=== PATIENT | female | born 1990 | race Caucasian/White ===

== ENCOUNTER 2017-07-30 18:29 | Emergency (ER) | payer OTHER ==
[~2017-07-30] VITALS: Ht 170.2 cm; Wt 63.7 kg
[2017-07-30 18:47] VITALS: Ht 170.2 cm; Wt 63.7 kg
[2017-07-30] MEDS ORDERED: ONDANSETRON 4MG OD TAB PO STA (19:56)
[2017-07-30] MEDS ORDERED: CHOLESTYRAMINE LIGHT 4 GM PKT PO STA (19:56)
--- NOTE | 2017-07-30 20:01 | EMERGENCY ROOM VISIT NOTE ---
History Report prepared by Chiquis: Doyle De Luna Under the Supervision of: Dr. Martín Monique M.D. First contact with patient: 19:48 Chief Complaint: DIARRHEA Stated Complaint: RUNNING NOSE,SORE THROAT,DIARRHEA Nursing Triage Summary: c/o of diarrhea and nasal congestion over the last 5 days. History of Present Illness The patient is a 27 year old female who presents to the Emergency Room with complaints of persistent diarrhea for the past 5 days. The patient states that she recently arrived in the [facility], and she has had diarrhea for the past five days as well as a runny nose, nausea, and sorethroat for the past few days. She denies any vomiting, abdominal pain, hematochezia, and any chance of . She does not take any medications, and she states that her last menstrual period ended two days ago. Source of History: patient Onset: 5 days Position: other (global) Quality: other (diarrhea) Timing: other (persistent) Associated Symptoms: + sorethroat, + nausea, No abdominal pain Note: Associated symptoms: runny nose Review of Systems See HPI for pertinent positives & negatives. A total of 10 systems reviewed and were otherwise negative. Past Medical & Surgical Medical Problems: (1) No chronic problems Family History Patient reports no known family medical history. Social History Smoking Status: Never Smoker Marital Status: single Occupation Status: unemployed Physical Exam Vital Signs Date Time Temp Pulse Resp B/P (MAP) Pulse Ox O2 Delivery O2 Flow Rate FiO2 07/30/17 20:18 37.0 99 20 131/90 100 Room Air 07/30/17 19:46 104 20 145/99 100 Room Air 07/30/17 18:47 37.0 102 18 147/97 96 Room Air Physical Exam GENERAL: Patient is a healthy-appearing well-nourished female HEAD: Normocephalic atraumatic EYES: Ocular movements intact pupils equal and react to light OROPHARYNX mucous membranes are moist no exudates present no erythema or edema present NECK: Supple no nuchal rigidity CHEST: Good equal expansion LUNGS: Clear and equal to auscultation CARDIAC: Normal S1 and S2 ABDOMEN: Soft nontender no guarding BACK: No CVA tenderness EXTREMITIES: No pain upon palpation normal muscle strength in all groups no clubbing cyanosis or edema NEURO: Patient is following commands and answering questions appropriately. Alert and oriented x3 Cranial Nerves 2-12 grossly intact Medical Decision & Procedures Laboratory Results Date/Time Source Procedure Growth Status 07/30/17 20:26 Stool C.difficile Toxin B Gene (PCR) - Final No C. difficile toxin B gene detected Complete Medications Administered Medications (Trade) Dose Ordered Sig/Shane Route Start Time Stop Time Status Last Admin Dose Admin Ondansetron HCl (Zofran Odt) 4 mg ONE STAT PO 07/30/17 19:56 07/30/17 19:57 DC 07/30/17 20:15 4 MG Cholestyramine Resin (Questran Powder Light) 4 gm NOW STAT PO 07/30/17 19:56 07/30/17 19:57 DC 07/30/17 20:15 4 GM ED Course 1947: Past medical records reviewed. The patient was evaluated in room B9. A complete history and physical examination was performed. 1955: Cholestyramine Resin 4gm PO, Zofran Odt 4mg PO 2034: Upon reexamination the patient is doing well. I discussed results and treatment plan with the patient. She verbalizes agreement and understanding. The patient is ready for discharge. Medical Decision Differential diagnosis: Etiologies such as appendicitis, diverticulitis, PUD, biliary pathology, UTI, pancreatitis, obstruction, mesenteric ischemia, aortic pathology, infections, inflammatory bowel disease, renal colic, as well as others were entertained. This is a twice 7-year-old female who presents emergency department complaining of diarrhea. Due to the [place] and insurance limitations the patient wishes to limit the amount of testing done on the patient in the emergency department. I feel that this is reasonable given the fact the patient has a benign abdominal examination. In addition the patient was given Zofran as well as cholestyramine. She was able to provide a stool sample. The patient is well appearance and I feel is safe enough to be discharged home. I stressed taking probiotics until her stool sample comes back. Patient was in agreement with the treatment plan. Medication Reconcilliation Current Medication List: was personally reviewed by me Blood Pressure Screening Patient's blood pressure: Elevated blood pressure Blood pressure disposition: Elevated BP felt to be situational Impression Primary Impression: Diarrhea Scribe Attestation The scribe's documentation has been prepared under my direction and personally reviewed by me in its entirety. I confirm that the note above accurately reflects all work, treatment, procedures, and medical decision making performed by me. Departure Information Dispostion Home / Self-Care Referrals No Doctor, Assigned (PCP) Forms HOME CARE DOCUMENTATION FORM, IMPORTANT VISIT INFORMATION, WORK / SCHOOL INSTRUCTIONS Patient Instructions ED Gastroenteritis Report [place], My [facility] Additional Instructions Take probiotics for diarrhea Culture results are usually available in approx 48 hours You have been examined and treated today on an emergency basis only. This is not a substitute for, or an effort to provide, complete comprehensive medical care. It is impossible to recognize and treat all injuries or illnesses in a single emergency department visit. It is therefore important that you follow up closely with your PCP. Call as soon as possible for an appointment. Thank you for your time and consideration. I look forward to speaking with you again soon. Please don't hesitate to call us if you have any questions. Problem Qualifiers Primary Impression: Diarrhea Diarrhea type: unspecified type Qualified Codes: R19.7 - Diarrhea, unspecified
[2017-07-30 20:18] VITALS: BP 131/90; PULSE 99; TEMP 37; O2SAT 100
== END 2017-07-30 20:46 | disposition home or self-care (01) ==
LOC: EDBD 18:33 → C.EDB 18:33
DX: R19.7 Diarrhea, unspecified (principal)